=== PATIENT | male | born 1950 | race Caucasian/White ===

== ENCOUNTER → 2017-02-16 | Outpatient (CLI) | payer MEDICARE ==
[2017-02-16 11:18] LABS: EST GLOM FILT AFRICAN AMERICAN > 60 ml/min
== END | disposition home or self-care (01) ==
LOC: MRI 02-15 11:00 → LAB 10:21 → MRI 10:21
PROVIDERS: Radiology Diagnostic Radiology
DX: I63.9 Cerebral infarction, unspecified (principal); E23.6 Other disorders of pituitary gland